=== PATIENT | male | born 1950 | race Caucasian/White ===

== ENCOUNTER 2018-12-25 05:45 | Inpatient (IN) | payer OTHER, SELFPAY ==
[2018-12-25] VITALS (13 sets, daily range): BP systolic 110–137; BP diastolic 57–80
[~2018-12-25] VITALS: Ht 182.9 cm; Wt 68.0 kg
[~2018-12-25 05:45] MED LIST: CARISOPRODOL350 MG ORAL; PREDNISONE5 M3 PO
[2018-12-25] MEDS ORDERED: Vancomycin 1gm vial IVPB ONE ×2 (06:26→07:55)
[2018-12-25] MEDS ORDERED: Gelfoam Size TOPIC ONE (06:26)
[2018-12-25] MEDS ORDERED: Thrombin 5000 units TOPIC ONE ×2 (06:26→08:24)
[2018-12-25] MEDS ORDERED: Bupivacaine w/Epi 0.5% 30ml Vial INJ ONE (06:27)
[2018-12-25] MEDS ORDERED: Bacitracin 50000 Units Vial ONE (06:27)
[2018-12-25] MEDS ORDERED: Lidocaine 1% MPF 10mg/ml 5ml ONE (06:31)
[2018-12-25] MEDS ORDERED: fentaNYL 100 mcg/2 mL IV ONE (06:31)
[2018-12-25] MEDS ORDERED: Dexamethasone 4mg/ml vial ONE (06:31)
[2018-12-25] MEDS ORDERED: Midazolam 2mg/2ml Inj ONE (06:31)
[2018-12-25] MEDS ORDERED: Phenylephrine 10mg/ml Vial ONE (06:40)
[2018-12-25] MEDS ORDERED: Zemuron 50mg/5ml Inj IV ONE (06:49)
[2018-12-25] MEDS ORDERED: Succinylcholine 20mg/ml 10ml vial ONE (06:49)
[2018-12-25] MEDS ORDERED: Glycopyrrolate 0.2mg/ml 1ml Vial ONE (07:00)
[2018-12-25] MEDS ORDERED: ceFAZolin 1gm in D5W 55ml IVP ONE (07:00)
[2018-12-25] MEDS ORDERED: LR 1000ml ONE (07:00)
[2018-12-25] MEDS ORDERED: Sterile Water Irrig 1000ml IRRIG ONE (07:00)
[2018-12-25] MEDS ORDERED: Propofol 1,000mg/ 100ml btl IV ONE (07:00)
[2018-12-25] MEDS ORDERED: ceFAZolin sod 2 GM in D5W 110 ML IVPB ONE (07:00)
[2018-12-25] MEDS ORDERED: Neostigmine 1mg/ml 10ml Inj ONE (07:00)
--- NOTE | 2018-12-25 07:07 | Brief Operative Note ---
Immediate Post Operative Note Operative Note Chief Complaint: neck pain and radiculopathy Pre-op Diagnosis: C34,45,56,67 herniations Procedure: Anterior cervical discectomy and fusion of C45 and C56 Post-op Diagnosis: same as pre-op Findings: consistent w/pre-op dx studies Surgeon: Stacy Desktop Analyst: Colt Anesthesiologist: MARIA D Anesthesia: general Specimen: none Complications: none Condition: stable Fluids: ivf Estimated Blood Loss: minimal Drains: none Implant(s) used?: Yes - nuvasive interlock c sz 6x2, screws 14mmx6 Neel Kumar MD Dec 25, 2018 07:07
--- NOTE | 2018-12-25 07:07 | Pre-Procedure Note/Attestation ---
Pre-Procedure Note/Attestation Complete Prior to Procedure Planned Procedure: not applicable Procedure Narrative: Anterior cervical discectomy and fusion of C45 and C56 Indications for Procedure Pre-Operative Diagnosis: C34,45,56,67 herniations Attestation I attest that I discussed the nature of the procedure; its benefits; risks and complications; and alternatives (and the risks and benefits of such alternatives ), prior to the procedure, with the patient (or the patient's legal customer retention representative). I attest that, if there was a reasonable possibility of needing a blood transfusion, the patient (or the patient's legal customer retention representative) was given the [facility] standardized written summary, pursuant to the [place] Blood Safety Act ([place] Health and Safety Code # 1645, as amended). I attest that I re-evaluated the patient just prior to the surgery and that there has been no change in the patient's H&P, except as documented below: Neel Kumar MD Dec 25, 2018 07:07
[2018-12-25] MEDS ORDERED: Morphine Sulfate 10mg/ml Inj ONE (07:59)
[2018-12-25] MEDS ORDERED: LR 1000ml 1,000 ML IVLG SCH (08:08)
--- NOTE | 2018-12-25 08:08 | Anethesia Preoperative Eval ---
Anesthesia Pre-op PMH/ROS General Date of Evaluation: Dec 25, 2018 Time of Evaluation: 06:50 Anesthesiologist: Ave ASA Score: ASA 3 Mallampati Score Class I : Soft palate, uvula, fauces, pillars visible Class II: Soft palate, uvula, fauces visible Class III: Soft palate, base of uvula visible Class IV: Only hard plate visible Mallampati Classification: Class II Surgeon: Stacy Diagnosis: Cervical radiculopathy Surgical Procedure: ACDF Anesthesia History: none Social History: smoking Family History: no anesthesia problems Allergies: Coded Allergies: No Known Allergies (Unverified , 12/24/18) Medications: see eMAR Patient NPO?: Yes NPO Date: Dec 24, 2018 NPO Time: 2100 Past Medical History Cardiovascular: Denies: HTN, CAD, [place], valve dz, arrhythmia, other Pulmonary: Reports: COPD; Denies: asthma, PATRICIA, other Gastrointestinal/Genitourinary: Reports: GERD, CRI; Denies: ESRD, other Neurologic/Psychiatric: Reports: other - chronic pain; Denies: dementia, CVA, depression/anxiety, TIA Endocrine: 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 Exam Physician Exam Last Vital Signs Date Time Temp Pulse Resp B/P (MAP) Pulse Ox O2 Delivery O2 Flow Rate FiO2 12/25/18 06:31 Room Air 12/25/18 06:19 97.7 63 18 129/73 (91) 97 Constitutional: NAD Neurologic: CN 2-12 intact Cardiovascular: RRR, no M/R/G Respiratory: other - some wheezing productive cogh Gastrointestinal: S/NT/ND Airway Exam Mallampati Score: Class II MO: limited Neck: stiff ROM: limited Teeth: intact Dentures: no upper, no lower Anesthesia Pre-op A/P Labs see chart Studies Pre-op Studies: EKG - NSR Risk Assessment & Plan Assessment: ASA 3 Plan: GA with ETT neuromonitoring Status Change Before Surgery: No Pre-Antibiotics Drug: Ancef 2gr. Given Within 1 Hr of Incision: Yes Time Given: 07:42 Gurpreet Dorado MD Dec 25, 2018 08:07
[2018-12-25] MEDS ORDERED: Hydromorphone 0.5mg/0.5ml inj IVP PRN (08:15)
[2018-12-25] MEDS ORDERED: Meperidine 50mg/ml Inj(FOR RIGORS ONLY) IV PRN (08:15)
[2018-12-25] MEDS ORDERED: Midazolam 2mg/2ml Inj IVP PRN (08:15)
[2018-12-25] MEDS ORDERED: DiphenhydrAMINE 50mg/ml Inj IVP PRN (08:15)
[2018-12-25] MEDS ORDERED: Ketorolac 30mg Inj IV PRN (08:15)
[2018-12-25] MEDS ORDERED: Acetaminophen (Non formulary) 100 ML IV ONE (08:15)
[2018-12-25] MEDS ORDERED: NS Irrig 1000ml IRRIG ONE (08:23)
--- NOTE | 2018-12-25 10:00 | Immediate Post-Op Evaluation ---
Immediate Post-Op Evalulation Immediate Post-Op Evalulation Procedure: ACDF C4-C6 Date of Evaluation: Dec 25, 2018 Time of Evaluation: 09:59 IV Fluids: 1200 Blood Products: none Estimated Blood Loss: >50 Urinary Output: 150 Blood Pressure Systolic: 116 Blood Pressure Diastolic: 58 Pulse Rate: 68 Respiratory Rate: 16 O2 Sat by Pulse Oximetry: 98 Temperature (Fahrenheit): 97.5 Pain Score (1-10): 1 Nausea: No Vomiting: No Complications none Patient Status: reacts, patent, extubated, none Hydration Status: adequate Gurpreet Dorado MD Dec 25, 2018 10:00
--- NOTE | 2018-12-25 10:45 | Diagnostic Imaging Report ---
INDICATION: Pain, intraoperative TECHNIQUE: Intraoperative imaging Fluoroscopy time: 5.1 seconds Total dose: 0.44406 mGym2 Total number of images: 3 COMPARISON: None FINDINGS: Intraoperative images demonstrate surgical tool projected over the C5-6 disc. Subsequent images document placement of anterior fusion hardware bridging C4-5 and C5-6 IMPRESSION: Intraoperative imaging, as described
--- NOTE | 2018-12-25 11:10 | NUR ---
NURSE NOTES: Received report from Sakshi ELECTION CLERK. Patient a/o x 4, in bed. No respiratory distress noted. Denies any pain. Surgical neck site is C/D/I. Lt hand IV is patent. SCD on. Unit orientation was given. Bed in lowest position, call light within reach. Will continue to monitor.
--- NOTE | 2018-12-25 11:39 | NUR ---
NURSE NOTES: Dr. Steinberg was notified that pt was admitted to room 305.
--- NOTE | 2018-12-25 11:50 | 48 Hour Post Anesthesia Eval ---
Post Anesthesia Evaluation Procedure: ACDF C4-C6 Date of Evaluation: Dec 25, 2018 Time of Evaluation: 11:48 Blood Pressure Systolic: 110 0: 71 Pulse Rate: 68 Respiratory Rate: 17 Temperature (Fahrenheit): 97.1 O2 Sat by Pulse Oximetry: 96 Airway: patent Nausea: No Vomiting: No Pain Intensity: 3 Hydration Status: adequate Cardiopulmonary Status: Stable Mental Status/LOC: patient returned to baseline Follow-up Care/Observations: 0 Post-Anesthesia Complications: 0 Follow-up care needed: N/A Addy Colbert MD Dec 25, 2018 11:50
[2018-12-25] MEDS ORDERED: Naloxone 0.4mg/ml Inj IVP PRN (12:00)
[2018-12-25] MEDS ORDERED: HYDROcodone/Acetamin 5/325 tab ORAL PRN (12:00)
[2018-12-25] MEDS ORDERED: Metoclopramide 10mg/2ml Inj IVP PRN (12:00)
[2018-12-25] MEDS ORDERED: Morphine Sulfate 4mg/ml Inj (IV USE ONLY) IV PRN ×2 (12:00)
[2018-12-25] MEDS ORDERED: HYDROcodone/Acetamin 7.5/325 tab ORAL PRN ×2 (12:00)
[2018-12-25] MEDS ORDERED: Morphine Sulfate 2mg/ml Inj(IV/IM USE ONLY) IV PRN (12:00)
[2018-12-25] MEDS ORDERED: Milk of Magnesia 30ml Ud ORAL PRN (12:00)
[2018-12-25] MEDS ORDERED: Dexamethasone 4mg/ml vial IVP SCH (12:00)
[2018-12-25] MEDS ORDERED: HYDROmorphone 1mg/ml Carpuject IVP PRN (12:00)
[2018-12-25] MEDS ORDERED: Chloraseptic Spray 20mL Bottle ORAL PRN (12:30)
[2018-12-25] MEDS ORDERED: NS w/KCl 20mEq 1000ml 1,000 ML IV SCH (12:30)
--- NOTE | 2018-12-25 12:47 | NUR ---
CASE MANAGEMENT:REVIEW 68 YR OLD MALE HERE FOR ELECTIVE SURGERY SI: NECK PAIN AND RADICULOPATHY 97.7 63 18 129/73 97% ON RA IS: TO SURGERY FOR: ANTERIOR CERVICAL DISCECTOMY AND FUSION C45 AND C56 IV ANCEF Q8HRS IVF+KCL @100/HR IV DECADRON Q6HRS IV MORPHINE PRN : TO MED/SURG 3 EAST POST OP Addendum: 12/25/18 at 1254 by THAIS TURNER LVN LVN INTERQUAL CRITERIA MET
[2018-12-25] MEDS ORDERED: CARISOPRODOL350 MG ORAL (13:00)
[2018-12-25] MEDS ORDERED: NORCO 10-325 T1 EACH ORAL (13:00)
--- NOTE | 2018-12-25 14:30 | NUR ---
NURSE NOTES: Discharge instruction, CD, X-ray paper was given. Belongings checked with pt and given to pt. IV access, arm band removed. Pt discharged with his brother in stable condition.
[2018-12-25] MEDS ORDERED: ceFAZolin sod 1 GM in D5W 55 ML IV SCH (15:30)
[2018-12-25] MEDS ORDERED: Docusate 100mg cap ORAL SCH (18:00)
--- NOTE | 2018-12-25 19:30 | Discharge Summary ---
DATE OF ADMISSION: 12/25/2018 DATE OF DISCHARGE: 12/25/2018 PROCEDURE PERFORMED DURING ADMISSION: ACDF, C4-C5 and C5-C6. REASON FOR ADMISSION: Herniated nucleus pulposus, C4-C5 and C5-C6. HOSPITAL COURSE/TREATMENT RENDERED: DISCHARGE PHYSICAL EXAMINATION: 1. The patient was ambulating with and without the assistance of physical therapy. 2. Prior to discharge home, incision was clean and dry with minimal swelling. 3. Follows commands. 4. Alert and oriented. 5. Smyth discontinued, voiding. 6. Incentive spirometer at bedside. 7. IVF hep-locked. MOTOR: Demonstrates expected postoperative bulk and tone. Moves biceps, triceps, and deltoid musculature on command. Moves hip flexors, quadriceps, tibialis anterior, EHL, gastrocsoleus musculature on command as well. TREATMENT RENDERED: 1. Daily nursing care. 2. Physical therapy. 3. Occupational therapy. 4. Intravenous medications. 5. Oral medications. 6. Daily postoperative examinations by Spine Surgery team. CONDITION OF PATIENT ON DISCHARGE: The condition on discharge is stable for discharge to home. DISCHARGE INSTRUCTIONS: Our specific instructions relating to physical activity, medications, diet, and followup care are detailed in our standard operative folder and were given to this patient prior to surgery. We will however summarize these briefly as stated below. Regarding physical activity, we would like the patient to limit his flexion, extension, and rotation. We also require a limitation on his bending, lifting, and twisting. All medication has been called in prior to surgery to their pharmacy of choice. He can resume his regular diet once tolerated. We would like him to shower and limit soaking the wound in a tub/Jacuzzi/the ocean for a period of one month or until the incision is completely healed. We will have him follow up in our office in three weeks' time for his regularly scheduled appointment. He understands to call our office tomorrow to schedule the time for his three-week followup appointment. The patient will notify us should he experience any increase in the severity of pain, redness/swelling, or drainage from his incision. Neel Kumar M.D. DR: Iva JOB#: [id number] CC:
--- NOTE | 2018-12-25 21:15 | Operative Note - Dictated ---
DATE OF OPERATION: 12/25/2018 SURGEON: Neel Kumar MD, Orthopaedic Spine Surgeon. ASSISTANT ACCOUNT MANAGER: DWIGHT Gay. PREOPERATIVE DIAGNOSES: 1. Intractable neck pain. 2. Radiculopathy. 3. Herniation, C4-C5 and C5-C6. 4. Neural foraminal stenosis, C4-C5 and C5-C6. 5. Stenosis. POSTOPERATIVE DIAGNOSES: 1. Intractable neck pain. 2. Radiculopathy. 3. Herniation, C4-C5 and C5-C6. 4. Neural foraminal stenosis, C4-C5 and C5-C6. 5. Stenosis. PROCEDURE PERFORMED: 1. Anterior cervical discectomy and fusion of C5-C6 using NuVasive Interlock-C, size 6, a total of three screws of 14 mm length, with the insertion of 1 mL Osteocel allograft; anterior cervical discectomy and fusion of C4-C5 using NuVasive Interlock-C, size 6, a total of three screws of 14 mm length, with the insertion of 1 mL Osteocel allograft. 2. Use of intraoperative microscope. 3. Motor-evoked potential monitoring. 4. Somatosensory-evoked potential monitoring. 5. Supervision and interpretation of fluoroscopy. COMPLICATIONS: None. ANESTHESIA: General. ESTIMATED BLOOD LOSS: Less than 100 mL. INDICATIONS FOR SURGERY: This patient is a 68-year-old male who has a history of intractable neck pain, radiculopathy, herniation of C4-C5 and C5-C6, neural foraminal stenosis of C4-C5 and C5-C6, and adjacent level herniations of C34, C67. We tried a course of conservative management, but despite this course, there was still a significant component of persistent, recalcitrant neck pain and arm pain. The MRI demonstrated significant neural foraminal compromise secondary to disc herniations at C4-C5 and C5-C6 and herniations of C34, C67. Based on his symptoms I felt the herniations of C45 and C56 were the most concerning and fell in line with the radicular symptoms he was describing. While I felt that there was some evidence of pre existing degenerative pathology in the form of anterior bone spurs,osteophytes along the anterior inferior margins of C4, C5, C6, I felt that there has clearly been an aggravation of the pathology with the given impact. There is also the herniations which did not appear like uniform wide degenerative bulges on the MRI but instead they appeared as left and right foraminal which could then be attributed to the impact he sustained. We had a long discussion with Kyle regarding the risks and benefits of surgery. Our discussion included but was not limited to nonoperative management, chiropractic management, another epidural steroid injection as well as definitive management in the form of surgery. We recommended a anterior cervical discectomy and fusion of C4-C5 and C5-C6 as final definitive management. He understood that while this surgery would be geared towards addressing his most symptomatic levels now, it would not be complete in so far as he may ultimately require definitive management of either C34 and C67 in the near future. I am reluctant to fuse all these levels with an initial surgery as it would only ensure a certain degree of neck stiffness and decreased range of motion which would impair his quality of life. We reviewed the risks and benefits of surgery and all potential surgeries with the patient. Our discussion included a comprehensive review of the clinical issues and the nature of the clinical decision. We reviewed the alternatives, including doing nothing. The patient elected to proceed accordingly with anterior cervical discectomy and fusion of C4-C5 and C5-C6. We had a long discussion regarding the risks, alternatives, and benefits of surgery. Our description of the risks included a discussion in person as well as a signed consent which detailed all pertinent risks from the procedure itself. Briefly, our discussion included but was not limited to infection, bleeding, pseudarthrosis, spinal cord injury, neurovascular injury, dural tear, CSF leak, neuropathy, paralysis, permanent weakness/drop foot/drop arm, paresthesias, blindness, palsy, and weakness. The patient understood there may be a need for a revision surgery or additional procedures. Approach-related complications including dysphonia, dysphagia, blindness, permanent vocal cord and neural injury, hematoma, swallowing and breathing difficulty. Medical complications were reviewed including liver, kidney, shock, cardiopulmonary failure, anesthesia complications including , swelling, damage to the musculature, larynx/voice injury or loss, esophagus/throat, trachea, blood vessels and muscles/muscular sprain and lungs/pneumothorax during this surgical procedure; injury to deeper structures may be temporary or permanent. After this review of risks, the patient understood these and elected to proceed. A written and verbal consent was given. We discussed the pros and cons of all the alternatives. We discussed the uncertainties associated with the decision. Afterwards, I assessed the patient's understanding and explored their preferences. All questions were answered and no guarantees were given. Medical clearance was obtained prior to surgery. INTRAOPERATIVE FINDINGS: 1. At C4-C5, the disc demonstrated a herniated nucleus pulposus with complete extrusion of the disc through a tear in the posterior longitudinal ligament, which was approximately 20 degrees cephalad to caudad, left sided, encroaching on the neural foramina. There was also pressure on the disc fragment itself, on the posterior thecal sac, and spinal cord itself. 2. At C5-C6, there was a herniated nucleus pulposus which had migrated through a tear in the posterior longitudinal ligament. This tear in the PLL was almost vertical approximately 10-15 degrees, cephalad to caudad, on the left side neural foramina and a large fragment was resected from the PLL itself, which was sitting on the neural elements therein. DESCRIPTION OF PROCEDURE: Under the benefit of general endotracheal anesthesia and with the assistance of the entire operative team, the patient was moved from the [place] onto the operative table in the supine position. The head was secured and carefully positioned appropriately. Bilateral arms were secured with Gel Pads and foam and all bony prominences were padded. For the bilateral lower extremities, SCD and BLANKA hose were placed for DVT prophylaxis. A surgical timeout was called which corroborated our planned procedure of anterior cervical discectomy and fusion of C4-C5 and C5-C6. Preoperative antibiotics were administered within 30 minutes of the incision for antibiotic prophylaxis. Using lateral fluoroscopic radiography, the operative levels were delineated. Next, the wound was prepped and draped with chlorhexidine and sterile drapes. An incision was based on lateral fluoroscopy and we centered our incision at the C4-C5 and C5-C6 interspace and next using a standard Lemus-Renee anterior-based approach, the incision was taken down through the skin and subcutaneous tissues until the vertebral bodies and their corresponding disc spaces were visualized. A needle was placed into the interspace to confirm placement of the operative interspace and we performed the remainder of procedure under microscopic visualization. Next, using bipolar and Bovie cautery to ensure meticulous hemostasis, the longus colli was mobilized bilaterally and retractors were placed deep to the longus colli bilaterally to address retraction. Next, we turned our attention to the radical anterior discectomy. This was initially performed at C5-C6 level first by using a 15 blade scalpel followed by narrow pituitaries and a Microsect 5-B curette was used to denude the endplate of all cartilaginous tissue. Next using a [employer] Van AM8 drill bit, the cartillage vertebral endplates were denuded in a wxot-gu-ozgw and abbut-ya-ogcnv fashion, and ultimately the posterior uncinate joints bilaterally and posterior osteophytic lips and margins causing central and lateral impingement were carefully denuded until visualization of the posterior longitudinal ligament was possible. An endplate preparation was performed in the exact same fashion using an intervertebral party host, sequential distraction was obtained throughout the disc space. We saw a tear/rent in the PLL, almost vertical approximately 10-15 degrees, cephalad to caudad, and this was carefully mobilized and dissected using a Microsect 1-B curette until we visualized a broad-based disc herniation with compression of the spinal cord as well as neural foramina which was left-sided. This neural foraminal compression was carefully resected using a Kerrison-1 and Kerrison-2 rongeurs until complete decompression of the spinal cord was visualized and complete decompression of the neural foramina and nerve root therein as well as the axilla and lateral margin of the nerve root was visualized and subsequently completely decompressed. The family was notified at one-hour intervals throughout the procedure to provide for consistent updates. Next, we turned our attention to the radical anterior discectomy at the C4-C5 level first by using a 15 blade scalpel followed by narrow pituitaries and a Microsect 5-B curette was used to denude the endplate of all cartilaginous tissue. Next using a Mid[employer] Van AM8 drill bit, the cartillagenous vertebral endplates were denuded in a ispp-hw-fwme and layer-by- layer fashion, and ultimately the posterior uncinate joints bilaterally and posterior osteophytic lips and margins causing central and lateral impingement were carefully denuded until visualization of the posterior longitudinal ligament was possible. An endplate preparation was performed in the exact same fashion using an intervertebral party host, sequential distraction was obtained throughout the disc space. We saw a tear/rent in the PLL , which was approximately 20 degrees cephalad to caudad, left sided, until we visualized a broad-based disc herniation with compression of the spinal cord as well neural foramina which was left-sided, encroaching on the neural foramina.and this was carefully mobilized and dissected using a Microsect 1-B curette This neural foraminal compression was carefully resected using a Kerrison-1 and Kerrison-2 rongeurs until complete decompression of the spinal cord was visualized and complete decompression of the neural foramina and nerve root therein as well as the axilla and lateral margin of the nerve root was visualized and subsequently completely decompressed. We next turned our attention towards trialing our implant within each disc space. At each we initially tried size 5 and afterwards size 6 trial from the NuVasive system at each level, which appeared to be appropriate under AP and lateral fluoroscopy as well as in terms of its height, depth, width, and lack of toggle. The PEEK (polyetheretherketone) interbody cages were then both packed with allograft bone from Osteocel and local autograft bone matrix. Next, these were then carefully advanced and secured into their intervertebral spaces under direct visualization and with supervision of AP and lateral fluoroscopic views. We next turned our attention towards plating. Plating was performed with [employer] Interlock-C plating system. At C5-C6 level, a total of three screws, size 14 mm in length were inserted and confirmed under AP and lateral fluoroscopy and confirmed to be in excellent position. This was then performed at the next level, C4-C5. A total of three screws, size 14 mm in length were inserted and confirmed under AP and lateral fluoroscopy and confirmed to be in excellent position. After a finger sweep, we confirmed removal of all sponges. The retractor was removed and we next turned our attention to meticulous hemostasis with FloSeal and bipolar cautery. After the sponge and needle count was again found to be correct with our second count, we next turned our attention to closure. The wound was again copiously irrigated with antibiotic-impregnated saline. Closure consisted of 4-0 clear nylon for the platysma, and 6-0 clear nylon for the superficial skin. Final skin closure and dressings consisted of Dermabond. Prior to final closure, a final radiograph was obtained which demonstrated the hardware was intact with excellent position throughout. The patient tolerated the procedure well. The patient was carefully extubated after the conclusion of surgery. We discussed the findings of the surgery with the family upon completion of the case. At this point, the patient was transferred to the spine floor for further observation. Neel Kumar M.D. DR: Iva JOB#: [id number] CC: JON
== END 2018-12-25 14:35 | disposition home or self-care (01) | DRG 473 ==
LOC: SDSOVERFLO 05:45 → 3E 11:18
PROC: 01N10ZZ Release Cervical Nerve, Open Approach (ICD-10-PCS; principal; 2018-12-25 07:00)
PROC: 0RB30ZZ Excision of Cervical Vertebral Disc, Open Approach (ICD-10-PCS; principal; 2018-12-25 07:00)
PROC: 0RG20A0 Fusion of 2 or more Cervical Vertebral Joints with Interbody Fusion Device, Anterior Approach, Anterior Column, Open Approach (ICD-10-PCS; principal; 2018-12-25 07:00)
DX: M50.121 Cervical disc disorder at C4-C5 level with radiculopathy (principal); M48.02 Spinal stenosis, cervical region; J44.9 Chronic obstructive pulmonary disease, unspecified
CPT/HCPCS: 36415; 72040; 76000; 82962; 86850; 86900; 86901; 87081; J2250; J2370; J2710